=== PATIENT | male | born 1995 | race Caucasian/White ===

== ENCOUNTER 2024-07-15 21:28 | Emergency (ER) | payer BC ==
[~2024-07-15] VITALS: Ht 180.3 cm; Wt 68.2 kg
[2024-07-15] MEDS ORDERED: AMOXICILLIN 50500 MG (21:33)
[2024-07-15] MEDS ORDERED: Ibuprofen 200 MG TAB PO ONE (22:00)
[2024-07-15 22:05] VITALS: BP 141/76
== END 2024-07-15 22:05 | disposition home or self-care (01) ==
LOC: ED 21:28
DX: S06.0X0A Concussion without loss of consciousness, initial encounter (principal); S00.03XA Contusion of scalp, initial encounter; W17.89XA Other fall from one level to another, initial encounter; W22.8XXA Striking against or struck by other objects, initial encounter; Y93.89 Activity, other specified